=== PATIENT | female | born 1990 ===

== ENCOUNTER → 2019-04-13 | Outpatient (CLI) | payer OTHER ==
[2019-04-13 13:37] LABS: Source, Urine Clean Catch
[2019-04-13 16:16] LABS: Bilirubin, Urine Neg (Neg); Blood, Urine 1+ (Neg); Glucose Qualitative, Urine Neg (Neg); Ketones, Urine Neg (Neg); Leukocyte Esterase, Urine 2+ (Neg); Nitrite, Urine Pos (Neg); Protein, Urine Neg (Neg); Specific Gravity, Urine 1.015 (1.003-1.022); Urobilinogen, Urine NORM (Normal)
[2019-04-13 16:31] LABS: Appearance, Urine Clear (Clear); Bacteria Many /hpf; Color, Urine Yellow (P-Yellow); Red Blood Cells, Urine 0-2 /hpf (0-2); Squamous Epithelial Cells Few /hpf (Few)
== END ==
LOC: LAB SHORT 11:30 → LAB 11:30
PROVIDERS: Registered Nurse Community Health
DX: Z34.91 Encounter for supervision of normal pregnancy, unspecified, first trimester (principal)
CPT/HCPCS: 81001; 87077; 87086; 87186

== ENCOUNTER → 2019-04-17 | Outpatient (CLI) | payer OTHER ==
[2019-04-19 17:06] LABS: CHLAMYDIA TRACHOMATIS, NAA Negative (Negative); NEISSERIA GONORRHOEAE, NAA Negative (Negative)
== END ==
LOC: LAB SHORT 15:15 → LAB 15:15
PROVIDERS: Registered Nurse Community Health
DX: Z34.91 Encounter for supervision of normal pregnancy, unspecified, first trimester (principal)
CPT/HCPCS: 87491; 87591

== ENCOUNTER → 2019-09-11 | Outpatient (CLI) | payer OTHER | LOC: LAB UCHC 11:42 → LAB SHORT 11:42 | DX: Z34.92 Encounter for supervision of normal pregnancy, unspecified, second trimester (principal) | CPT/HCPCS: 87077; 87086; 87186 ==

== ENCOUNTER → 2019-11-06 | Outpatient (CLI) | payer OTHER | LOC: LAB 11:00 → LAB SHORT 11:00 | DX: Z34.92 Encounter for supervision of normal pregnancy, unspecified, second trimester (principal) | CPT/HCPCS: 87081; 87653 ==

== ENCOUNTER 2019-11-21 11:13 | Inpatient (IN) | payer OTHER ==
[~2019-11-21] VITALS: Ht 160 cm; Wt 93.0 kg
--- NOTE | 2019-11-21 09:49 | NUR ---
1 YR AGO HAD THOUGHTS DID NOT ACT ON IT, DISCUSSED WITH PROVIDER
[2019-11-23 06:38] LABS: BASOPHILS ABSOLUTE AUTO 0.03 K/mm3 (0.00-0.23); BASOPHILS PERCENT AUTO 0 % (0-2); EOSINOPHILS PERCENT AUTO 1 % (0-6); Hemoglobin 11.3 g/dL (11.5-16.0); IMMATURE GRAN ABSOLUTE AUTO 0.02 K/mm3 (0.00-0.10); IMMATURE GRAN PERCENT AUTO 0 % (0-1); LYMPHOCYTES ABSOLUTE AUTO 2.21 K/mm3 (0.84-5.20); LYMPHOCYTES PERCENT AUTO 22 % (21-46); MONOCYTES ABSOLUTE AUTO 0.54 K/mm3 (0.16-1.47); MONOCYTES PERCENT AUTO 5 % (4-13); Mean Corpuscular HGB 32.1 pg (26.0-34.0); Mean Corpuscular HGB Conc 33.2 g/dL (31.5-36.5); Mean Corpuscular Volume 97 fL (80-100); Mean Platelet Volume 11.2 fL (9.1-12.4); NEUTROPHILS ABSOLUTE AUTO 7.08 K/mm3 (1.96-9.15); NEUTROPHILS PERCENT AUTO 71 % (41-73); Platelet Count 232 K/mm3 (150-400); RDW Coefficient Variation 13.2 % (11.7-14.2); RDW Standard Deviation 46.5 fL (35.1-46.3); Red Blood Cell Count 3.52 M/mm3 (3.80-5.20); White Blood Cell Count 9.98 K/mm3 (4.00-11.30)
[2019-11-23 08:18] LABS: PCO2 Cord - Arterial 59.1 mmHg (40-50); PO2 Cord - Arterial 25.6 mmHg (16-20); pH Cord - Arterial 7.25 (7.28-7.35)
[2019-11-23 08:20] LABS: PCO2 Cord - Venous 45.3 mmHg (40-50); PO2 Cord - Venous 32.6 mmHg (28-32); pH Umbilical Cord - Venous 7.37 (7.26-7.35)
--- NOTE | 2019-11-23 08:28 | NUR ---
11/23/19 0828 Sirena Madison VIABLE MALE BORN AT [address] 9/9/ WEIGH 6-15 (3160 [address]MAS) 20" CORD GASSES GIVEN TO MARCI CARMONA. CORD BLOOD GIVEN TO MICHI WALKER. BILATERAL SALPINGECTOMY DONE AND RIGHT AND LEFT FALLOPIAN TUBE SAMPLES TAKEN TO PATHOLOGY.
--- NOTE | 2019-11-23 12:35 | NUR ---
CORE REFERRAL SENT
--- NOTE | 2019-11-23 14:17 | NUR ---
PT C/O INCREASED DISCOMFORT. NOT QUITE TIME FOR PAIN RX. ICE PACK AND HEATING PAD GIVEN TO PATIENT TO ROTATE FOR COMFORT.
--- NOTE | 2019-11-23 14:40 | NUR ---
WHITE AND ORANGE MANUELA PAD CHANGED. BLEEDING WITH IN NORMAl LIMITS. RN NOTIFIED
[2019-11-24 05:27] LABS: Hematocrit 27.3 % (33.0-51.0); Mean Corpuscular HGB 31.8 pg (26.0-34.0); Mean Corpuscular Volume 97 fL (80-100); Mean Platelet Volume 10.7 fL (9.1-12.4); Platelet Count 189 K/mm3 (150-400); RDW Coefficient Variation 13.2 % (11.7-14.2); RDW Standard Deviation 46.5 fL (35.1-46.3); Red Blood Cell Count 2.83 M/mm3 (3.80-5.20); White Blood Cell Count 10.62 K/mm3 (4.00-11.30)
[2019-11-24] MEDS ORDERED: Percocet 5-3251 EACH (11:17)
[2019-11-24] MEDS ORDERED: IBUP800 (11:17)
--- NOTE | 2019-11-24 14:28 | NUR ---
PT DISCHARGED TO HOME. DISCHARGE INSTRUCTIONS GIVEN. NO QUESTIONS OR CONCERNS AT THIS TIME. TO F/U Tuesday AT 1000. ADVISED PT TO CALL IF SHE HAS ANY CONCERNS
== END 2019-11-24 14:38 | disposition home or self-care (01) | DRG 785 ==
LOC: BC 11-23 05:59
PROVIDERS: ADMIT Obstetrics & Gynecology
PROC: 6A550ZT Pheresis of Cord Blood Stem Cells, Single (ICD-10-PCS; 2019-11-23)
PROC: 8E0W0CZ Robotic Assisted Procedure of Trunk Region, Open Approach (ICD-10-PCS; 2019-11-23)
PROC: 10D00Z1 Extraction of Products of Conception, Low, Open Approach (ICD-10-PCS; principal; 2019-11-23 07:30)
PROC: 0UB70ZZ Excision of Bilateral Fallopian Tubes, Open Approach (ICD-10-PCS; 2019-11-23 07:30)
DX: O34.211 Maternal care for low transverse scar from previous cesarean delivery (principal); Z30.2 Encounter for sterilization; O99.344 Other mental disorders complicating childbirth; F31.9 Bipolar disorder, unspecified; Z3A.39 39 weeks gestation of pregnancy; Z37.0 Single live birth; O99.334 Smoking (tobacco) complicating childbirth; F17.200 Nicotine dependence, unspecified, uncomplicated
CPT/HCPCS: 36415; 82803; 85025; 85027; 86850; 86900; 86901; J0690; J1885; J2370; J2590; J2765; J3010; J7120